=== PATIENT | male | born 1925 ===

== ENCOUNTER 2016-12-07 17:20 | Emergency (ER) | payer MEDICARE ==
[2016-12-07 17:49] VITALS: BP 145/44
--- NOTE | 2016-12-07 18:21 | UC ---
Upper Extremity HPI - History of Current Complaint Chief Complaint: UCUpperExtremity Stated Complaint: ARM INJURY FROM FALL Time Seen by Provider: 12/07/16 18:11 Hx Obtained From: Patient Onset/Duration: Sudden Onset - tripped walking and injured R upper arm 3 weeks ago Severity Initially: Moderate Severity Currently: Moderate Location Of Pain: Is Discrete @ - R upper arm Aggravating Factor(s): Movement, Lifting Alleviating Factor(s): Rest Associated Signs And Symptoms: Positive: Negative - Allergies/Home Medications Allergies/Adverse Reactions: Allergies Allergy/AdvReac Type Severity Reaction Status Date / Time No Known Allergies Allergy Verified 12/07/16 17:49 Home Medications: Home Medications Nutritional Supplements [Ensure] 1 liq PO DAILY 12/07/16 [History Confirmed 09/18] PMH/Surg Hx/FS Hx/Imm Hx Previously Healthy: Yes Cardiovascular History: Hypertension Respiratory History: COPD - Surgical History Surgical History: Yes Surgery Procedure, Year, and Place: TEETH EXTRACTION - Family History Known Family History: Positive: None - Social History Occupation: Retired Lives: Alone Alcohol Use: Weekly Alcohol Amount: 6-PACK/WEEK Substance Use Type: None Smoking Status (MU): Former Smoker Type: Cigarettes When Did the Patient Quit Smoking/Using Tobacco: 30+ YEARS AGO Review of Systems Constitutional: Negative Skin: Negative Cardiovascular: Negative Musculoskeletal: Other: - R upper arm pain, denies wrist or elbow pain Neurological: Negative Psychological: Negative All Other Systems Reviewed And Are Negative: Yes Physical Exam Triage Information Reviewed: Yes Appearance: Well-Appearing, No Pain Distress, Well-Nourished Vital Signs: Initial Vital Signs Temp 96.4 F 12/07/16 17:44 Pulse 54 12/07/16 17:44 Resp 16 12/07/16 17:44 BP 145/44 12/07/16 17:44 Pulse Ox 98 12/07/16 17:44 Vital Signs Reviewed: Yes Neck exam: Normal Neck: Positive: Supple, Nontender Respiratory Exam: Normal Cardiovascular Exam: Normal Musculoskeletal: Positive: Strength Limited @ - R arm with full extension, no clavicular pain, pain in humerous area, no gross deformity or ecchymosis detected Neurological Exam: Normal Neurological: Positive: Alert Psychological Exam: Normal Skin Exam: Normal Upper Extremity Course/Dx - Differential Dx/Diagnosis Differential Diagnosis/HQI/PQRI: Contusion, Fracture (Closed), Strain, Sprain Provider Diagnoses: Right upper arm strain Discharge - Discharge Plan Condition: Good Disposition: HOME Patient Education Materials: Muscle Strain (ED) Referrals: Emiliano Cesar MD [Primary Care Provider] - 3 Days (if no better) Additional Instructions: apply cold packs to area of pain use over the counter advil or tylenol as directed for pain if needed Prop arm on pillow to sleep return if pain worsens at any time
--- NOTE | 2016-12-07 18:53 | RAD ---
Indication: Pain post fall 2 weeks ago and reinjury today. Pain at the distal and lateral humerus. Comparison: No relevant prior exams available on the [facility] for comparison. Technique: AP and lateral views RIGHT humerus. Report: Negative for humerus fracture or articular malalignment. 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 Unremarkable soft tissue contours. IMPRESSION: Negative for humerus fracture.
== END 2016-12-07 19:43 | disposition home or self-care (01) ==
LOC: UCEAST 17:20
DX: S46.911A Strain of unspecified muscle, fascia and tendon at shoulder and upper arm level, right arm, initial encounter (principal); I10 Essential (primary) hypertension; J44.9 Chronic obstructive pulmonary disease, unspecified; Z87.891 Personal history of nicotine dependence; W01.0XXA Fall on same level from slipping, tripping and stumbling without subsequent striking against object, initial encounter; Y93.01 Activity, walking, marching and hiking
CPT/HCPCS: 99212; G0463